=== PATIENT | female | born 1995 | race Caucasian/White ===

== ENCOUNTER 2022-09-25 23:30 | Emergency (ER) | payer MEDICAID, SELFPAY ==
[2022-09-25 23:31] VITALS: BP 143/92; PULSE 84; PULSE 86; RESP 16; TEMP 36.2; O2SAT 97; BMI 48.0
--- NOTE | 2022-09-26 01:04 | ED.VIS.FEGU ---
HPI HPI - Female History of Present Illness Chief Complaint: Vag Bld, Preg Informant: patient Pain Pain: Positive for Pelvic Pain Onset: Days (Several) Context: Gradual Onset Timing: Continuous Quality: Positive for Aching Location: - (Left of suprapubic) Current Severity: Mild Maximum Severity: Mild Bleeding Issue: Positive for Vaginal bleeding Onset: Days (4-5) Timing: Intermittent Current Severity: Mild Maximum Severity: Mild Associated Symptoms Last known menstrual period: 08/05/2022 Test: Positive and Home P: 0 Narrative Narrative: Early by home positive test, has not had an ultrasound yet. Started bleeding for 5 days ago, as well as some pelvic pain. No systemic symptoms otherwise such as lightheadedness or syncope, vomiting, fevers, urinary symptoms. She states initially the bleeding was very minimal, just some mild brown discharge, today she was seen in some mild bright red blood. No large amounts of bleeding. This is her first . PFSH PFSH Medical History no medical history no medical history Home Medications vit no.95-ferrous fumarate 28 mg-folic acid 800 mcg tablet ( Multivitamins) 1 tab PO DAILY #30 tabs 09/26/22 [Rx Last Taken Unknown] Allergy/AdvReac Type Severity Reaction Status Date / Time ondansetron [From Zofran] AdvReac Nausea Verified 09/25/22 23:34 Social History Smoking Status: Never smoker ROS ROS ED Constitutional Constitutional ED: Denies chills or fever(s) Eyes Eyes: Denies change in vision or diplopia ENT ENT ED: Denies rhinorrhea or sore throat Cardiovascular Cardiovascular: Denies chest pain or palpitations Respiratory/Chest Respiratory/Chest: Denies cough or dyspnea Gastrointestinal Gastrointestinal: Reports abdominal pain; Denies diarrhea, nausea or vomiting Genitourinary Genitourinary ED: Denies dysuria or hematuria Musculoskeletal Musculoskeletal: Denies back pain or neck pain Integumentary Denies abscess or rash Neurologic Neurologic: Denies headache(s), paresthesias or weakness Psychiatric Psychiatric: Denies anxiety or suicidal thoughts EXAM Physical Exam Const Vital Signs: 09/25/22 23:31 09/25/22 23:31 Temperature 97.1 F L 97.1 F L Temperature Source Temporal Temporal Pulse Rate 86 84 Respiratory Rate 16 16 Blood Pressure 143/92 H 143/92 H Blood Pressure Mean 109 109 Pulse Ox 97 97 Oxygen Delivery Method Room Air Room Air Positive well nourished and well developed General Appearance ED: well developed and NAD HEENT Reports moist mucous membranes normocephalic and atraumatic Eyes PERRL and EOMs intact bilaterally Neck full ROM and supple Resp normal respiratory effort and clear to auscultation bilaterally Cardio regular rate, regular rhythm and no murmurs Rate: Negative for tachycardic GI non-distended GI Narrative: Mild tenderness left pelvis on transabdominal exam no guarding or rebound Auscultation: normoactive bowel sounds Palpation: soft Back/Spine no CVA tenderness General Back: other FROM Extremity normal to inspection General Extremety ED: Negative for edema, pulses abnormal or tenderness General Extremity: Negative for edema or pulses abnormal Neuro oriented x3, CN's II-XII intact bilaterally and no sensory deficits noted Sensorium / Orientation: awake and alert Motor Exam: strength 5/5 throughout Skin no rashes or lesions noted and no wounds MDM MDM MDM Narrative Medical decision making narrative: Quantitative hCG is 542. I did a bedside ultrasound, not only is it limited by her obesity, but since her hCG is so low, I am not surprised that I was not able to verify an intrauterine nor a double decidual sign to verify intrauterine process. We did check her blood type it is a positive no RhoGAM indicated. Blood counts are stable. She remained clinically and hemodynamically stable in emergency department, the patient presents when ultrasound is not available, so I am keeping her here into the morning until ultrasound will be available to do her first thing for a transvaginal to rule out ectopic. That returned essentially negative, which is not unexpected for a quantitative hCG at 542. She is scheduled to follow-up with the obstetricians at [facility] here locally in [employer]. I discussed with Dr. Sheffield who was on-call, and she is in agreement with the plan to follow-up tomorrow as scheduled, and then she will have a 48-hour quantitative repeat hCG the day after. Lab Data Attestation: I reviewed the patient's lab results. Labs: Laboratory Results - last 24 hr 09/26/22 09/26/22 09/26/22 01:35 01:35 01:43 WBC 9.8 RBC 4.51 Hgb 12.9 Hct 39.5 MCV 87.6 MCH 28.6 MCHC 32.7 RDW Std Deviation 44.7 H RDW Coeff of Ector 14.0 Plt Count 345 MPV 10.6 Immature Gran % (Auto) 0.200 Neut % (Auto) 49.3 Lymph % (Auto) 31.4 Republic % (Auto) 7.1 Eos % (Auto) 11.6 H Baso % (Auto) 0.4 Absolute Neuts (auto) 4.8 Absolute Lymphs (auto) 3.07 Nucleated RBC % 0 HCG, Quant 542 H Blood Type A POSITIVE Radiography Diagnostic Testing: Clinical Impression(s) from Imaging Studies Obstetrics Ultrasound 09/26/22 02:37 IMPRESSION: No evidence of intrauterine gestational sac. Multiple small cystic changes are seen in the endometrium. Correlation with serial beta hCG is recommended. Electronically Signed: Ryan Garcia MD at 8:42 EST Reading Location ID and State: [facility] / [place] , Service support , Discharge Plan Triage Chief Complaint: Vag Bld, Preg ED Provider: Mickey Solano Dx/Rx/DC Orders Clinical Impression: Threatened in first trimester Instructions: ED Possible Miscarriage ... Prescriptions: New PNV cmb#95-ferrous fumarate-FA [ Multivitamins] 28 mg iron- 800 mcg tablet 1 tab PO DAILY Qty: 30 0RF Primary Care Provider: Care Physician,No Primary Referrals: Tonya Perez CNM [Med Staff - Adv Practice Prof] - Keep Armin appointment ((or whoever you are scheduled with)) Activity Restrictions/Additional Instructions: Your quantitative hCG is 542 as resulted on a.m. of 09/26. You will need a repeat level on the morning of 09/28. Disposition Disposition: Home, Self Care
[2022-09-26 01:59] LABS: Absolute Lymphocyte Count 3.07 X10^3/uL (0.83-4.51); Absolute Neutrophil Count 4.8 X10^3/uL (2.0-7.7); Basophil# 0.04 X10^3/uL; Basophil% 0.4 % (0-1); Eosinophil# 1.13 X10^3/uL; Eosinophils% 11.6 % (0-5); Hematocrit 39.5 % (37-47); Hemoglobin 12.9 g/dL (12.0-15.0); Lymphocyte # 3.07 X10^3/ul (0.83-4.51); Lymphocyte % 31.4 % (19-41); Mean Corp Hgb Conc 32.7 g/dL (32-36); Mean Corpuscular Hgb 28.6 pg (27.0-32.0); Mean Corpuscular Volume 87.6 fL (81-99); Mean Platelet Vol. 10.6 fl (6.2-12.0); Monocyte# 0.69 X10^3/uL; Monocyte% 7.1 % (0-10); NRBC Flagged by Analyzer 0 % (0-5); Neutrophil # 4.83 X10^3/uL (2.7-7.7); Neutrophil % 49.3 % (47-70); Platelet Count 345 K/mm3 (150-450); RBC Distribution Width SD 44.7 fl (35.1-43.9); Red Blood Count 4.51 M/mm3 (4.2-5.4); White Blood Count 9.8 K/mm3 (4.4-11.0)
[2022-09-26 02:18] LABS: hCG Titer Quant., Serum 542 mIU/mL (1-3)
--- NOTE | 2022-09-26 02:37 | US_ITS ---
STUDY: FIRST TRIMESTER OBSTETRICAL ULTRASOUND REASON FOR EXAM: Female, 26 years old bleeding, left pelvic pain - quant 542 LMP: 08/05/2022. TECHNIQUE: Transvaginal TECHNICAL QUALITY: Adequate. PRIOR ULTRASOUND: None. FINDINGS: No intrauterine gestational sac is seen. Several tiny cystic changes are seen in the endometrium. The largest measures 6 mm x 4 mm x 3 mm. There is no demonstrated yolk sac. The placenta is non-visualized. There is no demonstrated embryo ( pole). The estimated gestation age (EGA) by LMP is 7 weeks, 3 days. The estimated date of delivery (AAKASH) by LMP is 05/12/2023. The uterus measures 7.8 cm x 5 cm x 3.7 cm. The endometrium measures 9 mm. There is no demonstrated uterine fibroid. The cervix is closed. The right ovary measures 2.9 cm x 2.4 cm x 2.2 cm. There is no right ovarian cyst. There is no visualized right adnexal mass or complex lesion. The left ovary measures 2.3 cm x 2.3 cm x 2.1 cm. There is no left ovarian cyst. There is no visualized left adnexal mass or complex lesion. There is no fluid in the cul de sac. US/Transvaginal w/Preg US IMPRESSION: No evidence of intrauterine gestational sac. Multiple small cystic changes are seen in the endometrium. Correlation with serial beta hCG is recommended. Electronically Signed: Ryan Garcia MD at 8:42 EST ,
[2022-09-26 09:02] VITALS: BP 131/78; PULSE 78; RESP 16; O2SAT 100
== END 2022-09-26 09:03 | disposition home or self-care (01) ==
PROVIDERS: Emergency Provider Emergency Medicine; Visit Provider Emergency Medicine
DX: O20.0 Threatened abortion (principal); O99.211 Obesity complicating pregnancy, first trimester; E66.9 Obesity, unspecified; Z3A.00 Weeks of gestation of pregnancy not specified
CPT/HCPCS: 76817; 84702; 85025; 86900; 86901; 99282; A4216

== ENCOUNTER 2022-11-02 16:33 | Emergency (ER) | payer MEDICAID, SELFPAY ==
[2022-11-02 16:34] VITALS: BP 114/85
[2022-11-02 16:35] VITALS: BP 126/98; PULSE 83; RESP 16; TEMP 36.4; O2SAT 100; BMI 48.4
--- NOTE | 2022-11-02 16:53 | EX.ED.VIS.UR ---
HPI HPI - URI History of Present Illness Chief Complaint: Cold Sx Informant: patient Onset/Context/Timing Onset: Today and Yesterday Context: Gradual Onset Timing: Continuous Current Severity: Mild Maximum Severity: Mild Associated Symptoms Associated Symptoms: Positive for Nasal Congestion, Headache, Myalgias and Productive Cough; Negative for Nausea, Vomiting, Diarrhea, Shortness of Breath, Chest Pain, Nonproductive cough or Hemoptysis Narrative Narrative: 26-year-old female no significant past medical history of than prior abdominal surgery for cholecystectomy and abdominal trauma as a child. States yesterday she developed sore throat, nasal congestion and headache. Denies any vomiting or diarrhea. No dysuria. No fever. Currently on no antibiotics. She has had COVID 3 times last year. Prior similar symptoms: Yes Recent Illness/Hospitalization: No ROS ROS ED ROS Narrative Cough of yellowish sputum. Nasal congestion. Headache and sore throat. Review of Systems ROS Unobtainable: Denies due to encephalopathy Constitutional Constitutional ED: Denies chills or fever(s) Eyes Eyes: Denies blurry vision ENT ENT ED: Reports rhinorrhea and sore throat; Denies ear pain Cardiovascular Cardiovascular: Denies chest pain or palpitations Respiratory/Chest Respiratory/Chest: Reports cough Gastrointestinal Gastrointestinal: Denies abdominal pain, constipation, diarrhea, melena, nausea or vomiting Genitourinary Genitourinary ED: Denies dysuria or hematuria Musculoskeletal Musculoskeletal: Denies arthralgias or back pain Integumentary Denies abscess Neurologic Neurologic: Denies headache(s) Psychiatric Psychiatric: Denies anxiety or depression Endocrine Endocrinology: Denies cold intolerance Hematologic/Lymphatic Hematologic/Lymphatic: Denies easy bleeding or easy bruising PFSH PFSH Medical History no medical history no medical history Allergy/AdvReac Type Severity Reaction Status Date / Time ondansetron [From Zofran] AdvReac Nausea Verified 11/02/22 16:37 Surgical History (Updated 11/02/22 @ 17:01 by Lurdes Mancia) History of cholecystectomy Social History Smoking Status: Never smoker EXAM Physical Exam Narrative Exam Narrative: Well-appearing 26-year-old female. Vital signs are stable afebrile. Pulse ox 100% room air no signs hypoxia. H EENT exam TMs normal bilaterally. Posterior pharynx unremarkable. Clear rhinorrhea. Neck nontender no meningismus. No lymphadenopathy. Lungs clear to auscultation bilaterally. Heart regular rhythm rate about 80 no murmur. Chest were nontender. Abdomen soft nontender. Back unremarkable. Moving all 4 extremities. Calves are nontender without edema or cords. Neurologically she is awake alert with no focal motor deficits. Const Vital Signs: 11/02/22 16:35 11/02/22 16:58 11/02/22 16:58 Temperature 97.5 F L Temperature Source Temporal Pulse Rate 83 Respiratory Rate 16 Respiratory Effort Normal Non-Labored Normal Non-Labored Respiratory Depth Normal Respiratory Pattern Normal Normal Blood Pressure 126/98 H Blood Pressure Mean 107 Pulse Ox 100 Oxygen Delivery Method Room Air 11/02/22 16:34 Temperature Temperature Source Pulse Rate Respiratory Rate Respiratory Effort Respiratory Depth Respiratory Pattern Blood Pressure 114/85 H Blood Pressure Mean 94 Pulse Ox Oxygen Delivery Method Positive well nourished and well developed; Negative for cachectic or contractures General Appearance ED: well developed and NAD; Negative for cachectic, contractures, cyanotic, diaphoretic or pallor Nutritional Appearance: Negative for cachectic HEENT Reports moist mucous membranes; Denies dry mucous membranes normocephalic Face and Sinus: Negative for sinus tenderness, maxillary instability or facial tenderness Mouth ED: No dry mucous membranes Mouth: No dry mucous membranes Throat: posterior oropharynx normal Eyes PERRL and EOMs intact bilaterally General Eye ED: Negative for pale conjunctiva or scleral icterus Neck no lymphadenopathy, supple, no meningeal signs and no JVD General: Negative for anterior neck swelling or lymphadenopathy Resp normal respiratory effort and clear to auscultation bilaterally Auscultation: Negative for rales, rhonchi or wheezes Cardio S1 normal heart sound, S2 normal heart sound and no murmurs Rate: regular rate; Negative for bradycardia or tachycardic Rhythm: regular rhythm; Negative for abnormal rhythm GI non-tender, non-distended and no masses Inspection: Negative for abdominal distention Auscultation: normoactive bowel sounds Palpation: soft; Negative for tender or guarding Back/Spine no CVA tenderness and normal ROM General Back: Negative for CVA tenderness Cervical Spine: Negative for cervical spine tenderness Thoracic Spine / Upper Back: Negative for thoracic spinal tenderness Lumbar Spine / Lower Back: Negative for lumbar spinal tenderness Sacrum: Negative for tenderness Extremity normal to inspection and full ROM General Extremety ED: Negative for cyanosis or tenderness General Extremity: Negative for cyanosis Neuro oriented x3, CN's II-XII intact bilaterally and no sensory deficits noted Sensorium / Orientation: alert, oriented to person, oriented to place and oriented to time; Negative for orientation impaired, lethargic or stuporous Motor Exam: strength 5/5 throughout Psych mental status grossly normal Appearance: Negative for other Attitude: No agitated Mood & Affect: Negative for depressed, anxious or tearful Skin General Skin Exam: Negative for jaundice or pallor Lesions: no lesions Rashes: no rashes Trauma: Negative for abrasion or laceration MDM MDM MDM Narrative Medical decision making narrative: 26-year-old female URI symptoms most likely has a viral syndrome. Chest x-ray, COVID and influenza will be obtained. Clinically looks well. She is not hypoxic. She was a month ago but miscarried. Repeat exam unchanged. I discussed chest x-ray and COVID influenza test results the patient. She will be discharged home treated as a viral syndrome. Fluids and rest. Tylenol and Motrin. Follow-up as needed. Return if worse. Lab Data Lab results narrative: Rapid COVID and influenza tests are both negative. Chest x-ray shows no pneumonia. Radiography Chest X-Ray - ED: 2 View, Read by ED Physician, Read by Radiologist, Heart, Lungs, Mediastinum, Bony Structures and No Acute Disease Diagnostic Testing: Clinical Impression(s) from Imaging Studies Chest X-Ray 11/02/22 17:04 IMPRESSION: There are no acute findings. Electronically Signed: Zay Steel MD at 17:26 EDT Reading Location ID and State: [facility] / [place] , Service support , Chest x-ray, 2 views, AP and lateral, interpreted by myself shows no acute abnormality. Normal cardiac silhouette. Normal mediastinum. Also read by the radiologist who agrees. Discharge Plan Triage Chief Complaint: Cold Sx ED Provider: Arturo Paul Dx/Rx/DC Orders Clinical Impression: Viral URI Instructions: ED URI, Viral, No Abx (Adult) Primary Care Provider: Care Physician,No Primary Referrals: Philippe Snell MD [Med Staff - Material Handling Supervisor] - 10-14 Days if not better Care Physician,No Primary [Primary Care Provider] - Activity Restrictions/Additional Instructions: Your chest x-ray was negative no pneumonia. Your COVID and flu test were both negative. Plenty of fluids and rest. Tylenol and Motrin needed for body aches and or fevers. Follow-up if not improving. Disposition Disposition: Home, Self Care
--- NOTE | 2022-11-02 17:04 | RAD_ITS ---
STUDY: X-RAY CHEST REASON FOR EXAM: Female, 26 years old. CHEST PAIN cough TECHNIQUE: XR Chest 2 Views COMPARISON: None FINDINGS: There is no demonstrated pleural abnormality. Normal size heart. Normal mediastinum and alpesh. Normal visualized pulmonary arteries. Normal visualized aortic arch and descending thoracic aorta. Normal visualized thoracic spine. Normal visualized ribs, clavicles, and shoulders. There is no demonstrated abnormality of the visualized soft tissue structures of the upper abdomen. RAD/Chest PA and Lateral IMPRESSION: There are no acute findings. Electronically Signed: Zay Steel MD at 17:26 EDT ,
== END 2022-11-02 18:28 | disposition home or self-care (01) ==
PROVIDERS: Emergency Provider Emergency Medicine; Visit Provider Emergency Medicine
DX: J06.9 Acute upper respiratory infection, unspecified (principal); Z86.16 Personal history of COVID-19
CPT/HCPCS: 71046; 87428; 99283